=== PATIENT | male | born 1965 | race Caucasian/White ===

== ENCOUNTER 2023-08-16 04:33 | Day surgery (SDC) | payer OTHER ==
[2023-08-11 12:02] VITALS: BMI 24.3
[2023-08-16] MEDS ORDERED: PROPOFOL 40 ML ONE (07:53)
[2023-08-16] MEDS ORDERED: FENTANYL CITRATE/PF 50 MCG/ML VIAL ONE ×3 (07:53→08:47)
[2023-08-16] MEDS ORDERED: SUCCINYLCHOLINE CHLORIDE 200 MG/10 ML SYRINGE ONE (07:53)
[2023-08-16] MEDS ORDERED: MIDAZOLAM HCL 2 MG/2 ML SINGLE DOSE VIAL ONE (07:53)
[2023-08-16] MEDS: ceFAZolin SODIUM 1 GM VIAL IVPB ONE (08:40)
[2023-08-16] MEDS ORDERED: ePHEDrine SULFATE 50 MG/1 ML AMPULE ONE (09:28)
[2023-08-16] MEDS ORDERED: oxyCODONE HCL 5 MG TABLET PO PRN ×2 (09:38)
[2023-08-16] MEDS ORDERED: ONDANSETRON 4 MG/2 ML VIAL IVPUSH PRN (09:38)
[2023-08-16] MEDS ORDERED: LACTATED RINGERS SOLUTION 1,000 ML IV SCH (09:45)
[2023-08-16 13:04] VITALS: BP 160/87; PULSE 62; RESP 18; TEMP 97
== END 2023-08-16 13:05 | disposition home or self-care (01) ==
LOC: JASU-SURG 04:33
PROVIDERS: ATTEND Urology
PROC: 0TBB8ZZ Excision of Bladder, Via Natural or Artificial Opening Endoscopic (ICD-10-PCS; principal; 2023-08-16 08:00)
PROC: 0T778DZ Dilation of Left Ureter with Intraluminal Device, Via Natural or Artificial Opening Endoscopic (ICD-10-PCS; 2023-08-16 08:00)
DX: C67.9 Malignant neoplasm of bladder, unspecified (principal); N32.89 Other specified disorders of bladder; N40.0 Benign prostatic hyperplasia without lower urinary tract symptoms; N32.0 Bladder-neck obstruction
CPT/HCPCS: 76000-TC-FY; 82962; 88307-TC; 94760; C2617

== ENCOUNTER 2023-11-24 04:15 | Day surgery (SDC) | payer OTHER ==
[2023-11-19 13:49] VITALS: BMI 24.3
[2023-11-24] MEDS ORDERED: PROPOFOL 20 ML ONE (12:15)
[2023-11-24] MEDS ORDERED: MIDAZOLAM HCL 2 MG/2 ML SINGLE DOSE VIAL ONE (12:15)
[2023-11-24] MEDS ORDERED: ONDANSETRON 4 MG/2 ML VIAL IVPUSH PRN (12:22)
[2023-11-24] MEDS ORDERED: LACTATED RINGERS SOLUTION 1,000 ML IV SCH (12:30)
[2023-11-24] MEDS ORDERED: DEXAMETHASONE SOD PHOSPHATE 4 MG/1 ML VIAL ONE (13:03)
[2023-11-24] MEDS ORDERED: KETOROLAC TROMETHAMINE 30 MG/1 ML VIAL ONE (13:03)
[2023-11-24] MEDS ORDERED: ONDANSETRON 4 MG/2 ML VIAL ONE (13:03)
[2023-11-24] MEDS: ceFAZolin SODIUM 1 GM VIAL IVPB ONE (13:04)
[2023-11-24] MEDS ORDERED: LIDOCAINE HCL 2% JELLY 11 ML TP ONE (13:20)
[2023-11-24] MEDS: BACITRACIN ZINC 15 GM TUBE TOPICAL OINTMENT TP ONE (13:32)
[2023-11-24] MEDS: BUPIVACAINE HCL/PF 2.5 MG/ML - 30 ML VIAL IJ ONE (13:32)
[2023-11-24 14:15] VITALS: TEMP 97.1
[2023-11-24 14:55] VITALS: BP 118/72; PULSE 65; RESP 14
== END 2023-11-24 16:19 | disposition home or self-care (01) ==
LOC: JASU-SURG 04:15
PROVIDERS: ATTEND Urology
PROC: 0TBB8ZX Excision of Bladder, Via Natural or Artificial Opening Endoscopic, Diagnostic (ICD-10-PCS; principal; 2023-11-24 12:00)
PROC: 0VTTXZZ Resection of Prepuce, External Approach (ICD-10-PCS; 2023-11-24 12:00)
DX: C67.9 Malignant neoplasm of bladder, unspecified (principal); N47.1 Phimosis
CPT/HCPCS: 82962; 88304-TC; 88305-TC; 88341-TC; 88342-TC; 94760